=== PATIENT | female | born 1985 ===

== ENCOUNTER 2018-03-22 17:04 | Emergency (ER) | payer OTHER ==
--- NOTE | 2018-03-22 17:13 | UC ---
Throat Pain/Nasal Nico HPI - HPI Summary HPI Summary: 32 y/o female presents to the urgent care c/o sore throat an body aches since this morning. Pt went hiking and felt w/ nausea. She drank a lot of water. However she felt hot. Pain w/ swallowing is 6/10. Pt denies URI, SOB, chest pain ,abdominal pain, N/V/D. She was exposed to someone at work w/ similar symptoms yesterday. Pt has not taking anything to alleviate symptoms. - History of Current Complaint Stated Complaint: SORE THROAT Time Seen by Provider: 03/22/18 17:08 Hx Obtained From: Patient Onset/Duration: Gradual Onset, Lasting Hours - 12 hrs, Still Present Severity: Moderate Pain Intensity: 6 Pain Scale Used: 0-10 Numeric Cough: None Associated Signs & Symptoms: Positive: Dysphagia, Fever - subjective at home - Epiglottits Risk Factors Epiglottis Risk Factors: Negative - Allergies/Home Medications Allergies/Adverse Reactions: Allergies Allergy/AdvReac Type Severity Reaction Status Date / Time No Known Allergies Allergy Verified 03/22/18 17:16 Home Medications: Home Medications Levothyroxine TAB* [Synthroid 125 MCG TAB*] 1 tab PO DAILY 03/22/18 [History Confirmed 03/22/18] PMH/Surg Hx/FS Hx/Imm Hx Previously Healthy: Yes Endocrine History: Hypothyroidism - Family History Known Family History: Positive: None - Pt denies FMHX - Social History Occupation: Employed Full-time Lives: With Family Review of Systems Constitutional: Fever - subjective at home, Other - body aches Skin: Negative Eyes: Negative ENT: Sore Throat Respiratory: Negative Cardiovascular: Negative Gastrointestinal: Nausea Genitourinary: Negative Motor: Negative Neurovascular: Negative Musculoskeletal: Negative Neurological: Negative Psychological: Negative Is Patient Immunocompromised?: No All Other Systems Reviewed And Are Negative: Yes Physical Exam - Summary Physical Exam Summary: VITAL SIGNS: Reviewed. GENERAL: Patient is a well developed and nourished female who is sitting comfortable in the examining table. Patient is not in any acute respiratory distress. HEAD AND FACE: No signs of trauma. No ecchymosis, hematomas or skull depressions. No sinus tenderness. EYES: PERRLA, EOMI x 2, No injected conjunctiva, no nystagmus. No photophobia. EARS: Hearing grossly intact. Ear canals and tympanic membranes are within normal limits. MOUTH: Positive pharynx with erythema, no exudates, palatal petechiae. mild B/L tonsillar enlargement with no exudate. Uvula in midline. NECK: Supple, trachea is midline, Positive anterior cervical lymphadenopathy, no JVD, no carotid bruit, no c-spine tenderness, neck with full ROM. No meningeal signs, no Kernig's or brudzinskis signs. CHEST: Symmetric, no tenderness at palpation LUNGS: Clear to auscultation bilaterally. No wheezing or crackles. CVS: Regular rate and rhythm, S1 and S2 present, no murmurs or gallops appreciated. ABDOMEN: Soft, non-tender. No signs of distention. No rebound no guarding, and no masses palpated. Bowel sounds are normal. EXTREMITIES: FROM in all major joints, no edema, no cyanosis or clubbing. NEURO: Alert and oriented x 3. No acute neurological deficits. Speech is normal and follows commands. SKIN: Dry and warm Triage Information Reviewed: Yes Throat Pain/Nasal Course/Dx - Course Course Of Treatment: 32 y/o female presents to the urgent care c/o sore throat an body aches since this morning. Pt went hiking and felt w/ nausea. She drank a lot of water. However she felt hot. Pain w/ swallowing is 6/10. Pt denies URI , SOB, chest pain,abdominal pain, N/V/D. She was exposed to someone at work w/ similar symptoms yesterday. Pt has not taking anything to alleviate symptoms. Hx obtained. Pt w/ pharyngitis on examination. Rapid strep ordered, result: negative. Viral pharyngitis.Pt Rx ibuprofen PO to alleviates symptoms of pain and swelling. Advised on hand washing to avoid spreading. Pt advised to rest, eat well and avoid strenuous exercise. If symptoms do not improve or worsen advised to return to the urgent care or f/u with her PCP for further evaluation and treatment. Pt understood and agreed - Differential Dx/Diagnosis Differential Diagnosis/HQI/PQRI: Laryngitis, Mononucleosis, Pharyngitis, Sinusitis, Tonsillitis, URI Provider Diagnoses: 1- viral pharyngitis Discharge - Sign-Out/Discharge Documenting (check all that apply): Patient Departure - D/c home All imaging exams completed and their final reports reviewed: No Studies - Discharge Plan Condition: Stable Disposition: HOME Patient Education Materials: Pharyngitis (ED) Referrals: [facility] [place] [facility] [Outside] - 3 Days Additional Instructions: 1-Please take ibuprofen PO q6-8hrs prn as instructed after meals to alleviate pain and swelling. Increase fluid intake, eat well, rest and avoid strenuous exercise 2-If symptoms do not improve or worsen please return to the urgent care or f/u with your PCP in 3 days for further evaluation and treatment. - Billing Disposition and Condition Condition: STABLE Disposition: Home
[2018-03-22 17:15] VITALS: BP 115/72
== END 2018-03-22 17:39 | disposition home or self-care (01) ==
LOC: UCEAST 17:04
DX: J02.8 Acute pharyngitis due to other specified organisms (principal); E03.9 Hypothyroidism, unspecified
CPT/HCPCS: 87651; 99201; G0463